=== PATIENT | female | born 1970 | race Caucasian/White ===

== ENCOUNTER 2019-08-30 02:43 | Emergency (ER) | payer BC, OTHER ==
[2019-08-30] MEDS ORDERED: Lidocaine 1% 10 ML MDV INJECT ONE (03:44)
[2019-08-30] MEDS ORDERED: Diphtheria,Pertussis(Acell),Tetanus Vaccine 0.5 ML Syringe IM ONE (03:48)
[2019-08-30] MEDS ORDERED: Ibuprofen 400 MG Tab PO ONE (03:57)
--- NOTE | 2019-08-30 04:00 | EDM.PDOC ---
ED HPI GENERAL MEDICAL PROBLEM - General Chief Complaint: Laceration Stated Complaint: CUT LEFT MIDDLE FINGER Time Seen by Provider: 08/30/19 03:16 - History of Present Illness INITIAL COMMENTS - FREE TEXT/NARRATIVE: 49 y/o female presenting to ED for laceration. cut left middle finger on an aluminum tray at work. she was doing some food prep. no other trauma. nothing broke, no glass or foreign bodies. 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 Musculoskeletal History: Reports: None Neurological History: Reports: None Psychiatric History: Reports: None Endocrine/Metabolic History: Reports: None Insulin Pump Model and Medical Research Tech: N/A Hematologic History: Reports: None Immunologic History: Reports: None Oncologic (Cancer) History: Reports: None Dermatologic History: Reports: None - Infectious Disease History Infectious Disease History: Reports: None - Past Surgical History Head Surgeries/Procedures: Reports: None Social & Family History - Family History Family Medical History: Noncontributory - Tobacco Use Smoking Status *Q: Current Every Day Smoker Years of Tobacco use: 2 Packs/Tins Daily: 30 - Caffeine Use Caffeine Use: Reports: Coffee, Energy Drinks - Recreational Drug Use Recreational Drug Use: No ED ROS GENERAL - Review of Systems Review Of Systems: Comprehensive ROS is negative, except as noted in HPI. ED EXAM, SKIN/RASH Exam: See Below Text/Narrative:: Left middle finger was neurovascularly intact sensation was intact with good capillary refill. The base of the wound was examined in a bloodless field no foreign bodies were seen no tendons were seen. Subcutaneous depth. Isolated examination of the tendons in the extremity revealed no abnormalities. Sensation was also intact Exam Limited By: No Limitations General Appearance: Alert, WD/WN Head: Atraumatic Neck: Normal Inspection Respiratory/Chest: No Respiratory Distress Extremities: Normal Capillary Refill, Other ED SKIN PROCEDURES - Laceration/Wound Repair Left Digit - 3rd (Middle) Appearance: Subcutaneous, Linear, Clean Distal NVT: Neuro & Vascular Intact, No Tendon Injury Anesthetic Type: Local Local Anesthesia - Lidocaine (Xylocaine): 1% Plain Local Anesthetic Volume: 3cc Skin Prep: Chlorhexidine (Hibiciens), Saline, Sterile Drape Saline Irrigation (cc's): 2,000 Exploration/Debridement/Repair: Wound Explored, In a Bloodless Field, Explored to Base, Minimal Debridement, No Foreign Material Found, Wound Margins Revised Lac/Wound length In cm: 2 Suture Size: 4-0 # of Sutures: 2 Tetanus Status Addressed: Yes Course - Vital Signs Last Recorded V/S: Last Vital Signs Temp 97.7 F 08/30/19 03:00 Pulse 84 08/30/19 03:00 Resp 18 08/30/19 03:00 BP 195/89 H 08/30/19 03:00 Pulse Ox 98 08/30/19 03:00 - Orders/Labs/Meds Orders: Active Orders 24 hr Category Date Time Status Vaccines to be Administered [RC] PER UNIT ROUTINE Care 08/30/19 03:48 Active Meds: Medications Discontinued Medications Generic Name Dose Route Start Last Admin Trade Name Freq PRN Reason Stop Dose Admin Diphtheria/Tetanus/Acell Pertussis 0.5 ml 08/30/19 03:48 08/30/19 03:52 Adacel IM 08/30/19 03:49 0.5 ml .ONCE ONE Administration Ibuprofen 400 mg 08/30/19 03:57 Motrin PO 08/30/19 03:58 ONETIME ONE Lidocaine HCl Confirm 08/30/19 03:33 08/30/19 03:42 Xylocaine-Mpf 1% Administered 08/30/19 03:34 Not Given Dose 10 ml .ROUTE .STK-MED ONE Lidocaine HCl 10 ml 08/30/19 03:45 08/30/19 03:46 Xylocaine-Mpf 1% INJECT 08/30/19 03:46 10 ml ONETIME ONE Administration - Re-Assessments/Exams Free Text/Narrative Re-Assessment/Exam: 08/30/19 04:12 Educated the patient on signs of infection told her to come back for suture removal in 7 days antibiotic were given for prophylaxis. tetatuns given. She tolerated the procedure well. Departure - Departure Time of Disposition: 04:06 Disposition: Home, Self-Care 01 Clinical Impression: Laceration - Discharge Information Prescriptions: cephALEXin [Keflex] 500 mg PO Q6H 4 Days #16 cap Instructions: Laceration Care, Adult, [id number] Referrals: PCP,None [Primary Care Provider] - Forms: ED Department Discharge Additional Instructions: Return to ED for suture removal in 7 days. Return sooner with any signs of infection. Antibiotics for infection prophylaxis The following information is given to patients seen in the emergency department who are being discharged to home. This information is to outline your options for follow-up care. We provide all patients seen in our emergency department with a follow-up referral. The need for follow-up, as well as the timing and circumstances, are variable depending upon the specifics of your emergency department visit. If you don't have a primary care physician on staff, we will provide you with a referral. We always advise you to contact your personal physician following an emergency department visit to inform them of the circumstance of the visit and for follow-up with them and/or the need for any referrals to a consulting specialist. The emergency department will also refer you to a specialist when appropriate. This referral assures that you have the opportunity for follow-up care with a specialist. All of these measure are taken in an effort to provide you with optimal care, which includes your follow-up. Under all circumstances we always encourage you to contact your private physician who remains a resource for coordinating your care. When calling for follow-up care, please make the office aware that this follow-up is from your recent emergency room visit. If for any reason you are refused follow-up, please contact the [facility] Emergency Department at and asked to speak to the emergency department charge nurse. Sepsis Event Note - Evaluation Sepsis Screening Result: No Definite Risk - Focused Exam Vital Signs: Vital Signs Temp Pulse Resp BP Pulse Ox 08/30/19 03:00 97.7 F 84 18 195/89 H 98 Date Exam was Performed: 08/30/19 Time Exam was Performed: 04:12 - My Orders Last 24 Hours: My Active Orders 08/30/19 03:48 Vaccines to be Administered [RC] PER UNIT ROUTINE - Assessment/Plan Last 24 Hours: My Active Orders 08/30/19 03:48 Vaccines to be Administered [RC] PER UNIT ROUTINE
== END 2019-08-30 04:30 | disposition home or self-care (01) ==
LOC: MW.ED 02:43
DX: S61.213A Laceration without foreign body of left middle finger without damage to nail, initial encounter (principal); Z23 Encounter for immunization; F17.210 Nicotine dependence, cigarettes, uncomplicated; W26.8XXA Contact with other sharp object(s), not elsewhere classified, initial encounter; Y99.0 Civilian activity done for income or pay
CPT/HCPCS: 12001; 90471; 90715; 99282; A9270; J2001

== ENCOUNTER 2023-12-09 12:01 | Emergency (ER) | payer BC ==
[2023-12-09] MEDS ORDERED: Sodium Chloride 0.9% 10 ML Syringe FLUSH PRN (12:32)
[2023-12-09] MEDS ORDERED: Sodium Chloride 0.9% 2.5 ML Syringe FLUSH PRN (12:32)
[2023-12-09] MEDS: Ampicillin/Sulbactam Na 3 GM in Sodium Chloride 0.9% 100 ML IV ONE (12:52)
[2023-12-09] MEDS: Amoxicillin/Clavulanate K 875-125 MG Tab PO ONE (12:54)
[2023-12-09] MEDS: Ketorolac 30 MG/ML SDV IVPUSH ONE (12:55)
[2023-12-09 12:58] LABS: BASOPHILS ABSOLUTE AUTO 0.06 K/uL (0.00-0.20); BASOPHILS PERCENT AUTO 0.5 % (0.0-1.0); EOSINOPHILS ABSOLUTE AUTO 0.39 K/uL (0.00-0.45); EOSINOPHILS PERCENT AUTO 2.9 % (0.0-6.0); HEMATOCRIT 43.8 % (37.0-47.0); HEMOGLOBIN 14.7 g/dL (12.0-16.0); IMMATURE GRAN ABSOLUTE AUTO 0.04 K/uL (0.00-0.05); IMMATURE GRAN PERCENT AUTO 0.3 % (0.0-0.4); LYMPHOCYTES ABSOLUTE AUTO 3.29 K/uL (1.00-4.80); LYMPHOCYTES PERCENT AUTO 24.7 % (24.0-44.0); MEAN CORPUSCULAR HGB CONC 33.6 g/dL (32.0-36.0); MEAN CORPUSCULAR VOLUME 89.4 fL (83.0-99.0); MEAN PLATELET VOLUME 9.2 fL (9.4-12.3); MONOCYTES ABSOLUTE AUTO 0.84 K/uL (0.00-0.80); MONOCYTES PERCENT AUTO 6.3 % (0.0-8.0); NEUTROPHILS ABSOLUTE AUTO 8.71 K/uL (1.80-7.70); NEUTROPHILS PERCENT AUTO 65.3 % (41.0-71.0); PLATELET COUNT,PLT 367 K/uL (150-400); WHITE BLOOD CELL COUNT,WBC 13.33 K/uL (3.9-11.3)
[2023-12-09] MEDS: Benzocaine 20% Topical Spray UD MUCMEM ONE (13:07)
[2023-12-09] MEDS: Lidocaine 2% Viscous Solution 15 ML UD PO ONE (13:07)
[2023-12-09 13:28] LABS: A/G RATIO 0.9 (0.9-1.6); ALBUMIN 3.7 g/dL (3.4-5.0); BILIRUBIN TOTAL 0.4 mg/dL (0.2-1.0); CALCIUM 8.5 mg/dL (8.5-10.1); CREATININE 0.8 mg/dL (0.6-1.0); EST CRCL DRUG DOSING (CG) 69.42 mL/min; PROTEIN TOTAL,TP 7.7 g/dL (6.4-8.2)
[2023-12-09] MEDS: amLODIPine 5 MG Tab PO ONE (13:39)
== END 2023-12-09 13:52 | disposition home or self-care (01) ==
LOC: MW.ED 12:01
DX: K08.89 Other specified disorders of teeth and supporting structures (principal); I10 Essential (primary) hypertension
CPT/HCPCS: 36415; 80053; 85025; 96374; 99283; A9270; J1885

== ENCOUNTER 2024-03-12 03:07 | Emergency (ER) | payer BC ==
[2024-03-12] MEDS: Oxymetazoline 0.05% Nasal Spray 30 ML Bottle NAS ONE (03:22)
[2024-03-12] MEDS: Labetalol 100 MG Tab PO ONE (03:51)
[2024-03-12 03:57] LABS: BASOPHILS ABSOLUTE AUTO 0.07 K/uL (0.00-0.20); BASOPHILS PERCENT AUTO 0.5 % (0.0-1.0); EOSINOPHILS ABSOLUTE AUTO 0.43 K/uL (0.00-0.45); EOSINOPHILS PERCENT AUTO 3.2 % (0.0-6.0); HEMOGLOBIN 13.9 g/dL (12.0-16.0); IMMATURE GRAN ABSOLUTE AUTO 0.04 K/uL (0.00-0.05); IMMATURE GRAN PERCENT AUTO 0.3 % (0.0-0.4); LYMPHOCYTES ABSOLUTE AUTO 2.99 K/uL (1.00-4.80); LYMPHOCYTES PERCENT AUTO 21.9 % (24.0-44.0); MEAN CORPUSCULAR HEMOGLOBIN 29.9 pg (28.0-32.0); MEAN CORPUSCULAR HGB CONC 33.1 g/dL (32.0-36.0); MEAN CORPUSCULAR VOLUME 90.3 fL (83.0-99.0); MEAN PLATELET VOLUME 9.4 fL (9.4-12.3); MONOCYTES ABSOLUTE AUTO 0.86 K/uL (0.00-0.80); MONOCYTES PERCENT AUTO 6.3 % (0.0-8.0); NEUTROPHILS ABSOLUTE AUTO 9.26 K/uL (1.80-7.70); NEUTROPHILS PERCENT AUTO 67.8 % (41.0-71.0); PLATELET COUNT,PLT 343 K/uL (150-400); RED BLOOD CELL COUNT 4.65 M/uL (4.10-5.30); WHITE BLOOD CELL COUNT,WBC 13.65 K/uL (3.9-11.3)
[2024-03-12 04:18] LABS: CARBON DIOXIDE,CO2 27.2 mmol/L (21.0-32.0); CREATININE 0.8 mg/dL (0.6-1.0); EST CRCL DRUG DOSING (CG) 67.96 mL/min; POTASSIUM,K 3.5 mmol/L (3.5-5.1)
== END 2024-03-12 04:38 | disposition home or self-care (01) ==
LOC: MW.ED 03:07
DX: R04.0 Epistaxis (principal); I10 Essential (primary) hypertension
CPT/HCPCS: 36415; 80048; 85025; 99283; A9270